=== PATIENT | female | born 1950 | race Asian ===

== ENCOUNTER → 2023-11-23 | Emergency (ER) | payer MEDICAID ==
[~2023-11-23] VITALS: Ht 147.3 cm; Wt 40.9 kg
[2023-11-23 08:05] VITALS: BP 164/87; PULSE 64; RESP 16; TEMP 98.2; O2SAT 97
== END | disposition home or self-care (01) ==
LOC: EDBD 01:22 → ER 01:22
DX: H91.3 Deaf nonspeaking, not elsewhere classified (principal); H66.90 Otitis media, unspecified, unspecified ear
CPT/HCPCS: 99285